=== PATIENT | male | born 1985 | race Caucasian/White ===

== ENCOUNTER → 2017-02-27 | Outpatient (REF) | payer OTHER, BC ==
[~2017-02-27] MED LIST: HYDR-4309 PO; PRED20TA6 PO
[2017-02-27 12:22] LABS: PLATELET COUNT, AUTOMATED 203 K/uL (150-450)
== END ==
PROVIDERS: ATTEND Nurse Practitioner Family
DX: R11.2 Nausea with vomiting, unspecified (principal)
CPT/HCPCS: 82040; 82247; 82310; 82374; 82435; 82565; 82947; 84075; 84132; 84155; 84295; 84450; 84460; 84520; 85025

== ENCOUNTER 2017-12-09 21:07 | Emergency (ER) | payer BC ==
[~2017-12-09 21:07] MED LIST changes: -HYDR-4309 PO; +HYDR-653 PO
--- NOTE | 2017-12-09 21:32 | ER Report ---
History and Physical Time Seen By MD: 21:32 Hx. of Stated Complaint: patient accidently stepped in a pot hole, rolled left ankle, has pain in left foot up in to left calf. HPI/ROS CHIEF COMPLAINT: ankle injury HISTORY OF PRESENT ILLNESS: This is a 32 year old male. He stepped into a pothole tonight. Twisted his left ankle/foot. Has normal sensation. Pain radiated up into his calf. Cannot bear weight because of pain. Allergies: Coded Allergies: No Known Drug Allergies (Unverified , 10/21/13) Home Meds Discontinued Reported Medications [none] No Conflict Check 10/21/13 Discontinued Scripts Hydrocodone Bit/Acetaminophen (NORCO 5-325 TABLET) 1 Each Tablet, 1 EACH PO Q4- 6H PRN for PAIN, #10 TAB Prov:SHAE CESAR 10/21/13 Prednisone (PREDNISONE) 20 Mg Tablet, 40 MG PO QDAY, #8 TAB Prov:SHAE CESAR HVAC SPECIALIST 10/21/13 Reviewed Nurses Notes: Yes Hx Smoking: No Smoking Status: Former Smoker Hx Substance Use Disorder: No Hx Alcohol Use: Yes (occ 6 pack) Constitutional Vital Sign - Last 24 Hours 12/09/17 12/09/17 12/09/17 12/09/17 21:13 21:22 21:30 21:37 Temp 98.2 Pulse 102 96 96 Resp 24 B/P (MAP) 127/74 124/54 (77) Pulse Ox 91 93 92 O2 Delivery Room Air 12/09/17 12/09/17 12/09/17 12/09/17 21:52 22:06 22:12 22:27 Pulse 97 96 98 B/P (MAP) 119/74 (89) Pulse Ox 91 93 93 12/09/17 12/09/17 12/09/17 22:30 22:42 22:57 Pulse 89 90 B/P (MAP) 117/71 (86) Pulse Ox 93 93 Physical Exam General appearance: Patient is alert. No acute distress. Musculoskeletal: Left ankle shows significant swelling. No bruising. Medial malleolus is tender and swollen. Lateral malleolus is tender and swollen. Head of the fifth metatarsal is tender and swollen. No tenderness with palpation of the tibia in the lower leg anteriorly. Has some pain with palpation of the calf muscle. Weight bearing: Weight bearing not tested due to pain. Neurologic: The patient has normal sensation distal to the injury. Active range of motion is intact, but with pain. Cardiovascular: Normal dorsalis pedis and posterior tibialis pulses. Normal capillary refill. Skin: No rash. No skin breakdown. DIFFERENTIAL DIAGNOSIS: After history and physical exam differential diagnosis was considered for ankle injury including sprain, fracture, dislocation and soft tissue injury. Medical Decision Making EKG/Imaging Imaging ANKLE 3 VIEW MIN LEFT Indication: Left ankle pain. Comparison: None Available Findings: 3 views of the left ankle. No fracture or dislocation. No bony lesions or periosteal abnormality. No degenerative changes. There is soft tissue swelling the lateral aspect lung the ankle and the lateral proximal foot. IMPRESSION: 1. No acute osseous abnormality of the left ankle 2. Mild soft tissue swelling lateral aspect lung the ankle in the lateral foot. Report Dictated By: Desean Parekh at 12/09/2017 10:21 PM FOOT 3 VIEW LEFT Indication: Left foot pain. Comparison: None Available Findings: 3 views of the left foot were obtained. No fracture or dislocation. No bony lesion or periosteal abnormality. No appreciable degenerative changes. Soft tissues are unremarkable. IMPRESSION: 1.No acute osseous abnormality of the left foot Report Dictated By: Desean Parekh at 12/09/2017 10:18 PM ED Course/Re-evaluation Clinical Indication for ER IV: IV Access ED Course Reviewed imaging results with the patient. Conservative management for ankle sprain. Decision to Disposition Date: Dec 09, 2017 Decision to Disposition Time: 22:47 Depart Departure Latest Vital Signs Vital Signs Date Time Temp Pulse Resp B/P (MAP) Pulse Ox O2 Delivery O2 Flow Rate FiO2 12/09/17 22:57 90 93 12/09/17 22:30 117/71 (86) 12/09/17 21:13 98.2 24 Room Air Impression: Primary Impression: High ankle sprain of left lower extremity Condition: Improved Disposition: HOME OR SELF-CARE New Scripts No Active Prescriptions or Reported Meds Patient Instructions: Ankle Sprain (ED) Additional Instructions: Ibuprofen 200mg over the counter tablets, take 4 tablets three times a day with food. Apply ice 20 minutes every 1-2 hours while awake. An ARISTIDES wrap can be used for compression to help reduce swelling. Crutches with weight bearing as tolerated. Rest the injured area, keep it elevated while at rest. Begin gentle range of motion exercises. Problem Qualifiers Primary Impression: High ankle sprain of left lower extremity Encounter type: initial encounter Qualified Codes: S93.432A - Sprain of tibiofibular ligament of left ankle, initial encounter LOBITO COLON MD Dec 09, 2017 21:32
--- NOTE | 2017-12-09 22:24 | RADIOLOGY IMAGING REPORT ---
[place] [facility] [place] NAME: Urbano Cerna : 1985 MR: [id number] V: [id number] EXAM DATE: ORDERING PHYSICIAN: LOBITO COLON TECHNOLOGIST: Location: [facility] Patient: Urbano Cerna : 1985 Visit/Account:[id number] Date of Sevice: 12/09/2017 FOOT 3 VIEW LEFT Indication: Left foot pain. Comparison: None Available Findings: 3 views of the left foot were obtained. No fracture or dislocation. No bony lesion or periosteal abnormality. No appreciable degenerative teresa nges. Soft tissues are unremarkable. IMPRESSION: 1.No acute osseous abnormality of the left foot Report Dictated By: Desean Parekh at 12/09/2017 10:18 PM Report E-Signed By: Desean Parekh at 12/09/2017 10:21 PM WSN:[id number]
--- NOTE | 2017-12-09 22:28 | RADIOLOGY IMAGING REPORT ---
FACILITY: [facility] [place] PATIENT NAME: Urbano Cerna : 1985 MR: [id number] V: [id number] EXAM DATE: ORDERING PHYSICIAN: LOBITO COLON TECHNOLOGIST: Location: [facility] Patient: Urbano Cerna : 1985 Visit/Account:[id number] Date of Sevice: 12/09/2017 ANKLE 3 VIEW MIN LEFT Indication: Left ankle pain. Comparison: None Available Findings: 3 views of the left ankle. No fracture or dislocation. No bony lesions or periosteal abnormality. No degenerative changes. There is soft tissue swelling the lateral aspect lung the ankle and the lateral proximal foot. IMPRESSION: 1. No acute osseous abnormality of the left ankle 2. Mild soft tissue swelling lateral aspect lung the ankle in the lateral foot. Report Dictated By: Desean Parekh at 12/09/2017 10:21 PM Report E-Signed By: Desean Parekh at 12/09/2017 10:23 PM WSN:[id number]
[2017-12-09 22:30] VITALS: BP 117/71
== END 2017-12-09 23:06 | disposition home or self-care (01) ==
LOC: ER 21:35
DX: S93.432A Sprain of tibiofibular ligament of left ankle, initial encounter (principal)
CPT/HCPCS: 99284